=== PATIENT | male | born 1970 | race Caucasian/White ===

== ENCOUNTER → 2017-02-25 | Outpatient (CLI) | payer OTHER ==
--- NOTE | 2017-02-25 11:15 | MM ---
Reason for exam: clinical finding. History: Family history of breast cancer in maternal uncle at age 56. Indicated problem(s): non-bloody discharge in both breasts. Physical Findings: Nurse did not find any significant physical abnormalities on exam. MG Diagnostic Mammo w CAD GIUSEPPE Bilateral CC and MLO view(s) were taken. There are scattered fibroglandular densities. Finding: There are equal density (isodense) masses in the subareolar position of both breasts. Gynecomastia. These results were verbally communicated with the patient and result sheet given to the patient on 02/25/17. ASSESSMENT: Benign, BI-RAD 2 RECOMMENDATION: Clinical management of both breasts. Manage patient on a clinical basis.
== END | disposition home or self-care (01) ==
LOC: RADMAMWWP 06:43
PROVIDERS: ATTEND Internal Medicine
DX: N64.52 Nipple discharge (principal); N63 Unspecified lump in breast; Z80.3 Family history of malignant neoplasm of breast

== ENCOUNTER → 2022-01-30 | Outpatient (CLI) | payer OTHER ==
--- NOTE | 2022-01-30 13:10 | XR ---
Left knee HISTORY: Pain 4 views of the left knee, no comparisons There is joint space loss, marginal spurring especially in the medial compartment. Suprapatellar incr eased attenuation may be indicative of joint effusion. There is no evident fracture or dislocation. P robable bone island present within the proximal tibia. IMPRESSION: Osteoarthritis.
== END | disposition home or self-care (01) ==
LOC: RADXRMAIN 10:08
PROVIDERS: ATTEND Family Medicine
DX: M17.12 Unilateral primary osteoarthritis, left knee (principal)

== ENCOUNTER → 2022-02-08 | Outpatient (CLI) | payer OTHER ==
[~2022-02-08] MED LIST: REGADENOSON 0.4 MG/5 ML SYRINGE IV PRN
--- NOTE | 2022-02-08 11:20 | CA ---
Lexiscan Nuclear Stress Test Report Name: Mynor Maria Exam Date: 02/08/2022 10:21 Exam Location: [facility] Stress Ht (in): 75 Wt (lb): 260 BSA: 2.45 Ordering Phys: Basil Aguilera DO Referring Phys: BASIL AGUILERA,, Technologist: Chino Jasso Age: 52 Gender: M : 1970 Procedure CPT: Indications: R06.02 SOB ICD-10 Codes: Patient History: Medications: AMLODIPINE, SINGULAIR, PREDNISONE, COMUVENT Meds past 24 hrs: Pretest Chest Pain: STRESS TEST Lexiscan Protocol Exercise Duration (min:sec): 02:[address] Depressions (mm): Angina Score: Lu Score: Resting HR (bpm): 58 Peak HR (bpm): 88 Resting BP (mmHg): 130 / 78 Peak BP (mmHg): 151 / 83 MPHR: 169 Target HR: 144 % MPHR: 52 METS: 1.0 Total Dose: Peak Dose: Atropine: Double Product: 10514 BP Response: Stress Termination: Stress Symptoms: RELAXED AFTER 5 MINUTES Stress Summary: ECG ANALYSIS Resting ECG: Stress ECG: CONCLUSIONS At baseline EKG showed normal sinus rhythm, normal axis, no significant ST or T wave abnormalities. Patient recieved IV infusion of Lexiscan 0.4mg and at peak infusion EKG showed no significant change from baseline. Conclusions: 1. Normal EKG response to Lexiscan infusion 2. Nuclear imaging to be reported separately. Dr. Basil Aguilera DO (Electronically Signed) Final Date: 08 February 2022 11:19
--- NOTE | 2022-02-08 14:12 | NM ---
EXAMINATION TYPE: NM stress lexiscan cardiolite DATE OF EXAM: 02/08/2022 COMPARISON: NONE HISTORY: Shortness of breath TECHNIQUE: After the intravenous administration of 9.3 mCi Tc 99m Sestamibi - Cardiolite resting SPE CT images acquired 45 minutes post injection. The patient received 0.4mg Lexiscan, 24.6 mCi Tc 99m Sestamibi - Stress images obtained [address] injection FINDINGS: Review of stress and rest SPECT images demonstrates fixed defect involving the inferior wall myocardi um. Fixed defect involving the inferoapical myocardium. Cannot exclude a small area of stress-induced reversible ischemia. Corresponding wall motion defect. Gated analysis shows an estimated left ventr icular ejection fraction of 52 %. Report called to referring clinician at 1409 and 02/08/2022. IMPRESSION: 1. Fixed defect involving the inferior and inferoapical myocardium suggest previous infarct. Cannot e xclude a tiny area stress induced reversible ischemia in the apex correlate clinically..
== END | disposition home or self-care (01) ==
LOC: RADNMMAIN 08:29
PROVIDERS: ATTEND Internal Medicine
DX: R06.02 Shortness of breath (principal)
CPT/HCPCS: 93017; 78452; A9500; J2785

== ENCOUNTER → 2022-02-22 | Outpatient (CLI) | payer OTHER ==
[2022-02-22 18:14] LABS: HCT 47.2 % (39.6-50.0); HGB 15.7 g/dL (13.0-17.0); MCH 29.3 pg (27.0-32.0); MCHC 33.3 g/dL (32.0-37.0); MCV 88.2 fL (80.0-97.0); Mean Platelet Volume 10.1 fL (9.5-12.2); NRBC Per 100 WBC 0 /100 WBCS (0.0-0.0); Platelet Count 304 X 10*3/uL (140-440); RBC 5.35 X 10*6/uL (4.40-5.60); RDW 13.9 % (11.5-14.5)
[2022-02-22 18:26] LABS: African American GFR (CKD) 89.6 (60.0-200.0); Anion Gap 10.9 mmol/L (10.00-18.00); Blood Urea Nitrogen 15.5 mg/dL (9.0-27.0); Carbon Dioxide 26.1 mmol/L (20.0-27.5); Non-African American GFR(CKD) 77.3 (60.0-200.0); Potassium 3.7 mmol/L (3.5-5.5)
== END | disposition home or self-care (01) ==
LOC: LABPAT 14:13
PROVIDERS: ATTEND Internal Medicine
DX: Z01.812 Encounter for preprocedural laboratory examination (principal); R94.31 Abnormal electrocardiogram [ECG] [EKG]; R07.2 Precordial pain
CPT/HCPCS: 36415; 80051; 82565; 84520; 85027

== ENCOUNTER → 2022-02-26 | Day surgery (SDC) | payer OTHER ==
[2022-02-22 08:54] VITALS: BMI 33.1
[~2022-02-26] MED LIST changes: +ALPRAZolam 0.25 MG TAB PO PRN; +ALPRAZolam 0.5 MG TAB PO PRN; +ASPIRIN 325 MG TAB PO ONE; +ATORVASTATIN 80 MG TAB PO ONE; +HEPARIN SODIUM 1,000 UN/ML (10ML VL) IV ONE; +HEPARIN SODIUM 1,000 UN/ML (10ML VL) ONE; +HEPARIN SODIUM,PORCINE 10,000 UNIT in SODIUM CHLORIDE 0.9% 1,000 ML IRRIGATION PRN; +HEPARIN SODIUM,PORCINE 2,500 UNIT in SODIUM CHLORIDE 0.9% 250 ML IRRIGATION PRN; +IOPAMIDOL-370 125ML BTL INJ ONE; +LIDOCAINE 1% INJ 10MG/ML (5 ML VIAL-PF) SQ ONE; +NITROGLYCERIN SL TABS 0.4 MG TAB SUBLINGUAL PRN; -REGADENOSON 0.4 MG/5 ML SYRINGE IV PRN; +SODIUM CHLORIDE 0.9% 1,000 ML in EMPTY BAG 1 BAG IV SCH; +VERAPAMIL 2.5 MG/ML 2 ML AMP ONE; +VERAPAMIL SYRINGE (5 MG/10 ML) INTRAARTER ONE; +fentaNYL (PF) 50 MCG/ML 2 ML AMP IV ONE; +fentaNYL (PF) 50 MCG/ML 2 ML AMP ONE
[2022-02-26 11:02] VITALS: TEMP 97.7
[2022-02-26] MEDS: MIDAZOLAM 2 MG/2 ML VIAL IV ONE ×2 (12:12→12:15)
--- NOTE | 2022-02-26 12:42 | P.CARDCATH ---
Description of Procedure: PROCEDURES PERFORMED: Left heart catheterization, bilateral coronary angiography INDICATION: Abnormal stress test HISTORY: Patient is a pleasant 52-year-old male with family history of CAD who presents with some typical and atypical chest pain. Occasionally has only a few seconds of atypical chest pain however also has been having some pain which is relieved with nitroglycerin and worsened with exertion. Therefore stress test was performed which showed dilated fixed inferior defect with small area of possible apical ischemia. Therefore heart catheterization was recommended. CONSENT:I have discussed the risks, benefits and alternative therapies for the above-mentioned procedure and for both sedation/analgesia as well as necessary blood product administration, if indicated, as they pertain to this patient. The patient has indicated understanding and acceptance of the risks and procedures discussed. PROCEDURE: After the risks, benefits and alternatives of the above mentioned procedure explained in detail with the patient, informed consent was obtained. Patient was taken to the catheterization lab and prepped and draped in usual fashion. 1% lidocaine was used to anesthetize the right radial artery. A 6- Armenian sheath was placed in the right radial artery using modified Seldinger technique. Left coronary angiography was performed with a 5-Armenian JL 3.5 catheter and right coronary angiography was performed with a 5-Armenian JR5 catheter in various views. A 5-Armenian FR5 catheter was inserted into the left v entricle and pressure measurements were obtained. The right radial sheath was removed and a TR band was placed with hemostasis achieved. The patient tolerated the procedure well. Patient was transported back to the post catheterization holding area in stable condition. Conscious Sedation: Patient was monitored under the direct supervision of vision of myself for conscious sedation using Versed and fentanyl for a total duration of 19 minutes HEMODYNAMICS: Aorta: 133/69 LV: 144/7, LVEDP 14 SELECTIVE CORONARY ARTERIOGRAPHY: LEFT MAIN: The left main is a large caliber vessel which bifurcates into the LAD and circumflex. There is no significant stenosis. LEFT ANTERIOR DESCENDING CORONARY ARTERY: LAD is a large caliber vessel which wraps around to the apex. There is mild proximal LAD 20-30% stenosis and otherwise mild luminal irregularities. LEFT CIRCUMFLEX CORONARY ARTERY: Left circumflex is a moderate caliber vessel with mild proximal 20-30% stenosis and otherwise mild luminal irregularities. RIGHT CORONARY ARTERY: The right coronary artery is a large caliber vessel which gives off a PDA and PLV branch and is the dominant vessel. There is no significant stenosis. FINAL IMPRESSION: 1. Mild CAD as described above including 20-30% stenosis of the LAD and circumflex and otherwise mild luminal irregularities. 2. Normal left sided filling pressures PLAN: 1. Aggressive risk factor modification per most recent ACC/AHA guidelines. 2. Patient having some relief with nitroglycerin and consideration of microvascular dysfunction. Trial of Imdur. Unable to tolerate beta blockers previously. If no improvement, would discontinue as chest pain may be noncardiac in nature.
[2022-02-26 17:45] VITALS: RESP 16
[2022-02-26 17:46] VITALS: BP 142/79; PULSE 68
== END ==
LOC: CATHCVL 10:39
PROVIDERS: ATTEND Internal Medicine
DX: I25.10 Atherosclerotic heart disease of native coronary artery without angina pectoris (principal); Z82.49 Family history of ischemic heart disease and other diseases of the circulatory system; Z20.822 Contact with and (suspected) exposure to COVID-19; I10 Essential (primary) hypertension; E78.5 Hyperlipidemia, unspecified; J44.9 Chronic obstructive pulmonary disease, unspecified; I73.9 Peripheral vascular disease, unspecified; Z88.1 Allergy status to other antibiotic agents
CPT/HCPCS: 93458; 87635; C1769 ×2; C1894; J2250; J2001; J3010; J1644; Q9967